=== PATIENT | male | born 1995 | race African-American/Black ===

== ENCOUNTER 2019-09-12 02:51 | Emergency (ER) | payer OTHER ==
[~2019-09-12] VITALS: Ht 160 cm; Wt 72.6 kg
[2019-09-12 05:01] VITALS: BP 107/63
== END 2019-09-12 05:06 | disposition home or self-care (01) ==
LOC: ER 02:51
DX: S01.512A Laceration without foreign body of oral cavity, initial encounter (principal); S81.011A Laceration without foreign body, right knee, initial encounter; W10.9XXA Fall (on) (from) unspecified stairs and steps, initial encounter; Y93.89 Activity, other specified; Y92.89 Other specified places as the place of occurrence of the external cause; Y99.8 Other external cause status

== ENCOUNTER 2020-04-03 12:00 | Emergency (ER) | payer OTHER ==
[~2020-04-03] VITALS: Ht 167.6 cm; Wt 76.7 kg
[2020-04-03 12:02] VITALS: BP 126/75
== END 2020-04-03 13:52 | disposition home or self-care (01) ==
LOC: ER 12:00
DX: S61.212A Laceration without foreign body of right middle finger without damage to nail, initial encounter (principal); W25.XXXA Contact with sharp glass, initial encounter; Y93.89 Activity, other specified; Y92.89 Other specified places as the place of occurrence of the external cause; Y99.8 Other external cause status